=== PATIENT | female | born 1950 ===

== ENCOUNTER → 2018-11-17 | Day surgery (SDC) | payer BC ==
[~2018-11-17] MED LIST: Acetaminophen / Codeine* #3 (300 MG/30 MG) TAB PO ONE; Acetaminophen TAB* 325 MG PO PRN; Buffered Lidocaine 1% SYRIN* 1 ML/SYRINGE INTRADERM ONE; Bupivacaine 0.25% SDV PF* 10 ML VIAL INJ ONE; Dexamethasone IV* 4 MG/ML 1 ML (4 MG) IV SLOW PU ONE; Dexamethasone IV* 4 MG/ML 1 ML (4 MG) ONE; Dexamethasone IV* 4 MG/ML 5 ML VIAL (20 MG) ONE; DiMENhydriNATE IV* 50 MG/ML VIAL IV PUSH PRN; Famotidine IV* 10 MG/ML 2 ML (20 mg) IV ONE; Famotidine IV* 10 MG/ML 2 ML (20 mg) ONE; HYDROcodone/ACETAMIN 5-325 MG* 1 TAB PO PRN; Ketorolac INJ* 30 MG/ML 1 ML VIAL IV PRN; Lactated Ringers 1000 ML Bag* 1,000 ML IV SCH; Lidocaine 1% INJ* 10 MG/ML 30 ML SDV ONE; Lidocaine 2% PF * 5 ML VIAL ONE; Midazolam* 1 MG/ML 5 ML VIAL (5 MG) ONE; Naloxone* 0.4 MG/ML 1 ML VIAL IV PRN; Ondansetron INJ* 2 MG/ML VIAL ONE; Propofol* 10 MG/ML 20 ML BTL ONE; ceFAZolin 2 GM in NS PREMIX(*) 2 GM/100 ML BAG IVPB ONE; fentaNYL* 50 MCG/ML 2 ML VIAL (100 MCG VIAL) IV PRN; fentaNYL* 50 MCG/ML 2 ML VIAL (100 MCG VIAL) ONE; oxyCODONE/Acetamin 5/325 MG* TAB PO PRN
[2018-11-17 11:01] VITALS: BP 124/59
--- NOTE | 2018-11-17 16:02 | OP ---
DATE OF OPERATION: 11/17/18 - [facility] DATE OF : 54 SURGEON: Felipe Khoury DPM. ANESTHESIA: MAC with local. PRE-OP DIAGNOSIS: Right foot plantar fasciitis. POST-OP DIAGNOSIS: Right foot plantar fasciitis. OPERATIVE PROCEDURE: Right foot plantar fasciotomy. ESTIMATED BLOOD LOSS: Less than 10 cc. IV FLUIDS: LR 1000 cc. DRAINS: None. SPECIMENS: None. DESCRIPTION OF PROCEDURE: The patient was taken to the operating room and was placed in the supine position. Time-out was called and the OR team agreed. The right foot was then blocked with 6 cc of 1% lidocaine plain locally to the site. The foot was then prepped and draped in a sterile manner. The right foot was then exsanguinated with an Esmarch bandage and the cuff was then inflated to 100 mmHg. Attention was then paid to the right plantar aspect of the foot at the level of the plantar medial calcaneal tubercle. I palpated the medial band of the plantar fascia, I then followed it down to its attachment to the plantar medial calcaneal tubercle. I then went ahead and made a linear incision across that site with a #15 blade on the nonweightbearing surface of the heel. This was followed by sharp and blunt dissection. All neurovascular structures were retracted from the site starting from the dermis, epidermis, subcutaneous tissue , and down to the deep fascia. I identified the medial band of the plantar fascia to its attachment to the calcaneus. I went ahead and took a #15 blade and transected it down to muscle. Once I reached the muscle, the procedure was deemed completed. I inspected the site, irrigated, and closed it in a layered anatomical fashion. I went ahead and closed it with 4-0 nylon. I then injected the site with 3 cc of 0.25% Marcaine plain as well as 2 cc of 8 mg of dexamethasone phosphate. This completed the procedure. The cuff was then deflated. The foot was placed in a sterile dry dressing. I went ahead and inspected. All the toes had good capillary refill and they had instantaneous refill x5 on the right foot. The foot was then placed in a dry sterile dressing. The patient was taken to Recovery in stable condition and was later discharged in stable condition as well. [id number]/[facility]: [id number] [facility]
== END | disposition home or self-care (01) ==
LOC: OR 06:42
PROVIDERS: ATTEND Podiatrist
DX: M72.2 Plantar fascial fibromatosis (principal); E78.5 Hyperlipidemia, unspecified; F41.8 Other specified anxiety disorders; K58.9 Irritable bowel syndrome, unspecified
CPT/HCPCS: A9270-GY; J0690; J1100; J2250; J2405; J2704; J3010; J3490